=== PATIENT | male | born 1995 | race Caucasian/White ===

== ENCOUNTER → 2017-08-28 09:44 | Outpatient (REF) | payer BC, SELFPAY | LOC: LAB 09:44 | PROVIDERS: Visit Provider Podiatrist | DX: L60.0 Ingrowing nail (principal) | CPT/HCPCS: 87070; 87077; 87186; 87205 ==

== ENCOUNTER → 2018-07-15 10:19 | Outpatient (CLI) | payer BC, SELFPAY ==
--- NOTE | 2018-07-15 10:25 | XR_ITS ---
XR abdomen min 2V HISTORY: ITS.REASON: LOWER ABD PAIN ORDERING PHYSICIAN: [place] MD PATIENT AGE: 22 years COMPARISON: None FINDINGS: There is mild lumbar scoliosis convex left. Scattered air-fluid levels are present in large and small bowel. The bowel does not appear distended. No free air apparent. Prior cholecystectomy. No renal calculi evident. IMPRESSION: Scattered air-fluid levels within nondilated bowel which could be due to enteritis/colitis
== END ==
PROVIDERS: PCP Family Medicine; Visit Provider Family Medicine
DX: R10.30 Lower abdominal pain, unspecified (principal)
CPT/HCPCS: 74019

== ENCOUNTER 2022-07-31 08:37 | Emergency (ER) | payer OTHER, SELFPAY ==
[2022-07-31] VITALS (15 sets, daily range): BP systolic 122–177; BP diastolic 83–108; PULSE 65–79; RESP 14–18; TEMP 36.4; O2SAT 95–100; BMI 32.1
--- NOTE | 2022-07-31 08:47 | PC.NURSE ---
ROGERS MARQUEZ at
--- NOTE | 2022-07-31 08:49 | XR_ITS ---
FINAL REPORT CLINICAL HISTORY: fall, possible deformity FINDINGS: Right shoulder Three views were obtained. There is no acute fracture. There is anterior dislocation of the humerus at the glenohumeral joint. The joint spaces appear normal. No soft tissue abnormality is identified. IMPRESSION: Anterior dislocation of the humerus. Reviewed, Interpreted and Dictated by Thong Muir III, MD Transcribed by Marlin Howard Authenticated and [facility]
--- NOTE | 2022-07-31 08:51 | HMH.EDGENADL ---
Discharge Plan Disposition Patient Disposition: Home, Self-Care Condition: Good Prescriptions Prescriptions: No Action dexlansoprazole 60 mg capsule,biphase delayed releas 60 mg PO 30 Days Label Comments: Referrals Follow up/Referrals: Chris Figueroa JR, MD [Physician] - See instructions Juno Hernandez MD [Primary Care Provider] - See instructions Activity Restrictions/Add. Instructions Additional Instructions/Restrictions: Shoulder immobilizer. Avoid raising your right arm over your head until orthopedic follow-up. Follow-up with orthopedics, Dr. Figueroa, call for appointment. Ibuprofen and ice packs as needed for pain and swelling. Clinical Impressions Clinical Impression: Anterior dislocation of right shoulder Stand Alone Forms Stand Alone Forms: Work/School Release Instructions Patient Instructions: DI for Shoulder Dislocation, DI for Moderate Sedation, How to Use a Shoulder Immobilizer Discharge ED Provider: Tariq Hernadez General Adult HPI General Chief complaint: Extremity Injury, Upper Stated complaint: Fall@work 07/31 0835 RT shoulder pain Time Seen by Provider: 07/31/22 08:40 Mode of Arrival: Ambulatory Source of Information: Patient Limitations: No Limitations Description of Symptoms (Recalled from ER Triage Doc. by RN): Pt c/o R shoulder pain r/t fall. Pt slipped and fell down some steps. Possible deformity noted to R shoulder area. Radial and brachial pulses positive. History of Present Illness HPI narrative: Patient complains of a dislocated right shoulder. States that he slipped and fell down some steps landing on his back. He thinks he might of put out his right arm to break his fall and injured his right shoulder. 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 He says that his last dislocation was about 3 to 4 years ago. His orthopedist was at the [facility], he does not remember his name. Denies numbness or weakness of the extremity and denies any other injuries. Last oral intake was an hour and a half ago. Related Data Home Medications Medication Instructions Recorded Confirmed dexlansoprazole 60 mg 60 mg PO 30 days 08/28/17 09/21/19 capsule,biphase delayed release Allergies Allergy/AdvReac Type Severity Reaction Status Date / Time No Known Allergies Allergy Verified 09/21/19 11:06 [facility] Disclaimer: The information contained in this section may have been updated after the patient was seen, as this information can be updated by other users. Social History Smoking Status: Never smoker alcohol intake: current current occupational status: employed Travel in the last 8 weeks: Inside the [place] household members: family housing: house ROS Obtained: Yes Systems reviewed as appropriate & no additional complaints except as documented Constitutional Constitutional: Denies weakness Musculoskeletal Musculoskeletal: Reports as per HPI, Reports arthralgias (Right shoulder) and Denies numbness Neurologic Neurologic: Denies numbness and Denies weakness Physical Exam General General appearance: alert and in no apparent distress Chest Chest inspection: Present normal inspection and symmetric chest wall rise Respiratory Respiratory exam: Absent respiratory distress Cardiovascular Cardiovascular exam: Present regular rate Expanded Upper Extremity Exam Right: Arm exam: Present tenderness and deformity (Deformity consistent with anterior shoulder dislocation) Neurosensory exam: Normal radial nerve, ulnar nerve, median nerve and axillary nerve Vascular exam: Normal capillary refill and radial pulse Neurological Exam Neurological exam: Present alert and oriented X3 Psychiatric Psychiatric exam: Present normal affect and normal mood Skin Skin exam: Present warm and dry Medical Decision Making Edgardo Inquiry Pt receiving controlled subst
--- NOTE | 2022-07-31 08:52 | PC.NURSE ---
Spoke to Dejah in radiology regarding xray order; she is on way to get patient
--- NOTE | 2022-07-31 09:00 | PC.NURSE ---
rad at for portable xrays
--- NOTE | 2022-07-31 09:14 | PC.NURSE ---
ot on environmental monitoring specialist, O2 @ 2L per NC in place in preparation for procedure. 0914- propofol [address] martinez for sedation 0914-propofol [address] martinez 0917-propofol [address] martinez 0918- propofol [address] martinez 09- propofol [address] martinez 0920- shoulder relocated per dr. martinez 0923- sling on R shoulder, pt drowsy but easily alertable, able to answer questions 09- post reduction xray
--- NOTE | 2022-07-31 09:19 | PC.NURSE ---
ROGERS MARQUEZ at for procedure; FABIAN Qureshi and Melissa Mckinney RN at to assist
--- NOTE | 2022-07-31 09:24 | XR_ITS ---
FINAL REPORT CLINICAL HISTORY: post-reduction COMPARISON: 20 minutes prior FINDINGS: RIGHT SHOULDER A single view was obtained. There has been interval reduction of the previous dislocation. No fracture is identified. IMPRESSION: Successful reduction of dislocation. Reviewed, Interpreted and Dictated by Thong Muir III, MD Transcribed by Raulito Chiang Authenticated and [facility]
--- NOTE | 2022-07-31 09:24 | PC.NURSE ---
Ashley in radiology notified of post reduction xray order
--- NOTE | 2022-07-31 09:28 | PC.NURSE ---
family at bs
--- NOTE | 2022-07-31 09:40 | PC.NURSE ---
pt sitting up in bed, on phone, family at BS, alert/oriented x3. States no needs at this time will continue to monitor
--- NOTE | 2022-07-31 10:07 | PC.NURSE ---
came out and asked if pt could have something for pain, asked the dr if pt can have something for pain
--- NOTE | 2022-07-31 10:14 | PC.NURSE ---
pt on room air at this time, medicated per MAR
== END 2022-07-31 10:30 | disposition home or self-care (01) ==
PROVIDERS: Emergency Provider Emergency Medicine; PCP Family Medicine
DX: S43.004A Unspecified dislocation of right shoulder joint, initial encounter (principal); W01.0XXA Fall on same level from slipping, tripping and stumbling without subsequent striking against object, initial encounter; Y99.0 Civilian activity done for income or pay
CPT/HCPCS: 23650; 73030; 96361; 96374; 99284

== ENCOUNTER → 2022-08-15 07:26 | Outpatient (CLI) | payer OTHER, SELFPAY ==
--- NOTE | 2022-08-15 07:32 | MR_ITS ---
FINAL REPORT TECHNIQUE: Multiplanar and multisequence imaging of the shoulder was obtained without contrast. CLINICAL HISTORY: shoulder injury, dislocation on jul 31. COMPARISON: Plain films from July 31, 2022 FINDINGS: Bones/Joint: There is a Hill-Sachs fracture with surrounding bone contusion. The humeral head is appropriately located on this study. Remaining bone marrow signal intensity is normal. The AC joint is intact. Rotator Cuff: There may be a partial thickness articular sided anterior supraspinatus tendon tear. There is no convincing full-thickness tear of the supraspinatus or infraspinatus tendons. The subscapularis tendon is intact. There is no fatty atrophy of the rotator cuff musculature. Labrum: There is a SLAP tear of the superior labrum which extends posteriorly to at least the 8-9 o'clock location. There is a separate anterior-inferior labral tear. The biceps labral complex is intact. The glenohumeral ligaments are intact. Other: The more distal biceps tendon is located within the bicipital groove. There is a small joint effusion. Remaining soft tissues are within normal limits. IMPRESSION: Hill-Sachs fracture with humeral head bone contusion. Probable partial anterior supraspinatus tendon tear. Slap tear of the superior labrum extending posteriorly. Anterior-inferior labral tear. Reviewed, Interpreted and Dictated by Jessica Winters MD Transcribed by Raulito Chiang Authenticated and [facility]
== END ==
PROVIDERS: PCP Family Medicine; Visit Provider Orthopaedic Surgery
DX: M25.511 Pain in right shoulder (principal); S43.014A Anterior dislocation of right humerus, initial encounter
CPT/HCPCS: 73221

== ENCOUNTER → 2022-09-12 08:23 | Outpatient (CLI) | payer OTHER, SELFPAY ==
[2022-09-12 09:05] LABS: Basophils # 0.1 K/mm3 (0-0.2); Basophils % 1.2 % (0.1-2.0); Eosinophils # 0.2 K/mm3 (0.0-0.4); Eosinophils % 2.9 % (0.1-12.0); Hematocrit 47.7 % (42.0-52.0); Hemoglobin 15.8 g/dL (14.1-18.0); Lymphocytes # 2.2 K/mm3 (0.7-4.5); Lymphocytes % 28.6 % (10-50); Mean Corpuscular HGB Conc 33.1 g/dL (31.8-35.4); Mean Corpuscular Hemoglobin 28.3 pg (27.0-31.2); Mean Corpuscular Volume 85.7 fl (80-94); Mean Platelet Volume 8.9 fl (7.4-10.4); Monocytes # 0.5 K/mm3 (0.1-1.0); Neutrophils # 4.5 K/mm3 (1.8-7.8); Neutrophils % 60.3 % (37.0-80.0); Platelet Count 229 K/mm3 (142-424); Red Blood Count 5.57 M/mm3 (4.60-6.20); Red Cell Distribution Width 13.8 % (11.5-17.5); White Blood Count 7.5 K/mm3 (4.8-10.8)
[2022-09-12 09:27] LABS: Alanine Aminotransferase 59 U/L (12-78); Albumin Level 4.4 g/dl (3.5-5.0); Albumin/Globulin Ratio 1.7 (1.1-1.8); Alkaline Phosphatase 74 U/L (38-126); Anion Gap 12.4 mEq/L (5-15); Aspartate Amino Transferase 35 U/L (17-59); Bilirubin,Total 0.7 mg/dl (0.2-1.3); Blood Urea Nitrogen 14 mg/dl (9-20); Calcium 8.9 mg/dl (8.4-10.2); Carbon Dioxide 27 mmol/L (22.0-30.0); Chloride 102 mmol/L (98-107); Estimated Glomerular Filt Rate 100 ml/min (>60); GFR (African American) 122 ML/MIN (>60); Globulin 2.6 g/dL (1.3-3.2); Glucose 107 mg/dl (74-100); Potassium 4.4 mmoL/L (3.5-5.1); Sodium 137 mmol/L (136-145)
== END ==
PROVIDERS: PCP Family Medicine; Visit Provider Orthopaedic Surgery
DX: Z01.818 Encounter for other preprocedural examination (principal); M25.511 Pain in right shoulder
CPT/HCPCS: 36415; 80053; 85025

== ENCOUNTER 2022-09-17 11:57 | Day surgery (SDC) | payer OTHER, SELFPAY ==
[2022-09-17] VITALS (13 sets, daily range): BP systolic 139–172; BP diastolic 76–99; PULSE 68–117; RESP 18–24; TEMP 36.1–36.8; O2SAT 93–97; BMI 32.1
--- NOTE | 2022-09-17 13:43 | P.PN_ITS ---
[facility] Disclaimer: The information contained in this section may have been updated after the patient was seen, as this information can be updated by other users. Medical History History of gastroesophageal reflux (GERD) Surgical History History of cholecystectomy Status post labral repair of shoulder Family History Other Family history of cancer Family history of diabetes mellitus type II Thyroid cancer Social History Smoking Status: Never smoker alcohol intake: current substance use type: denies use current occupational status: employed Travel in the last 8 weeks: [place] the [place] household members: family housing: house marital status: education level: college service: No special ricci needs: No agree to transfusion: No do you feel safe at home: Yes victim of physical abuse: No victim of emotional abuse: No victim of sexual abuse: No would you like helpful sources: No [facility] Anesthesia Checklist Patient Identification Patient Identification: Arm Band Structural Data Admitted From: Home Planned Operative Procedure/s: Right Shoulder Arthroscopy, Rotator Cuff Repair Consent for Planned Operative Procedure(s) Verified: Yes Verified Documents: Surgical Consent and History and Physical NPO Status Verified Time NPO: 00:00 Additional verifications Anesthesia Reactions: No Hx Blood Transfusions: No Blood Transfusion Reaction: No Airway Assessment C-Spine Mobility Assessed: Yes TMJ Mobility Assessed: Yes Dentition: Good Dentition Neurological Assessment Level of Consciousness: Awake and Alert Anesthesia Plan Anesthesia Risk discussed: Yes Anesthesia Plan: Verified ASA Class: II Anesthesia Type: General w/block (Right Interscalene Nerve Block. Risks/benefits explained. Pt verbalized understanding)
--- NOTE | 2022-09-17 17:00 | P.PNANES_ITS ---
[facility] Anesthesia Record Part I Anesthesia Record I Intake, IV Amount: 2,000 Estimated blood loss (mL): 20 Urine output (mL): 0 Blood Products used (#): none Blood Pressure: 143/79 SaO2: 93 Pulse Rate: 117 Respiratory Rate: 24 Temperature: 97 F Patient is:: Drowsy and Stable Stable to PACU at:: 16:45
--- NOTE | 2022-09-17 17:02 | EXP.OP.NOTE ---
Date of procedure: 09/17/22 Pre-op Diagnosis:: Right shoulder dislocation with anterior labral tear SLAP tear partial-thickness rotator cuff tear Post-op Diagnosis:: Same Procedure performed:: 1. Right shoulder arthroscopy with SLAP repair 2. Right shoulder arthroscopy with anterior labral pair Bankart repair 3. Right shoulder arthroscopy with debridement partial-thickness rotator cuff tear Surgeon:: Edwardo Montano DO Mobile Paramedical Examiner(s):: Royer TRAN Anesthesia: GETA and regional Estimated blood loss (mL): 0 Operative findings:: Anterior labral tear SLAP tear partial-thickness rotator cuff tear none engaging Hill-Sachs lesion Operative note:: Patient identified preoperatively right shoulder marked with yes my initials. Underwent a block with anesthesia. Then transferred to operative suite. Placed upon the bed. General anesthesia ministered airway secured. Then placed in a lateral position with a beanbag with all bony prominences well-padded. Right arm was placed in line with the arm quinteros 15 pounds of traction. Right shoulder was then prepped and draped normal sterile fashion. Once prepped and draped final operative timeout performed to identify proper patient procedure and extremity. Everyone involved the case agreed. No counter indications beginning. Did receive preoperative antibiotics. Marking pen was used to carissa bony landmarks of the shoulder and standard portal sites. Skin knife was used to incise posterior viewing portal blunt with trocar was placed in the glenohumeral joint. Within the glenohumeral joint I swept directly anteriorly just above the subscapularis tendon and made an anterior working portal unchanged with a purple cannula. Within the glenohumeral joint there was evident tearing of the anterior labrum superior labrum. Arm was taken through motion and Hill-Sachs lesion was not engaging therefore not requiring remplissage procedure. Therefore attention was brought to repair of the anterior labrum superior labrum. There was significant tearing of the labrum and fraying of the tissue anteriorly. However there was adequate tissue for repair. So suture lasso was used to pass a passing suture through the labrum and initial anchor was placed at 2:00 to secure labrum to the glenoid. Then I worked inferiorly and superiorly from this anchor placing push lock anchors to repair the labrum and the SLAP tear. Probing this showed no displacement of the posterior labrum and anterior labrum. Stable repair. Undersurface of the rotator cuff debrided and small partial-thickness tearing present. Biceps anchor was restored. Once labral pair complete cameras removed the joint was drained skin was closed nylon stitch sterile dressing placed patient placed in a pillow in a sling and abduction pillow taken recovery in stable condition. Condition: stable Disposition: PACU Complications:: None apparent
--- NOTE | 2022-09-18 09:09 | EXP.ANES.II ---
[facility] Anesthesia Record Part II Anesthesia Record Part II Discharge Time: 17:15 Destination: Surgical Day Care (OP Surgery) PACU nurse assessment reviewed?: Yes Patient Condition:: Good Anesthesia Complications:: None Swallowing reflex intact?: Yes Cyanosis?: No Blood Pressure: 149/76 Pulse Rate: 92 Temperature: 97.9 F Mental Status: Alert & Oriented Pain level:: 0 Nausea and/or vomitting:: None Intake, IV Amount: 0
[2022-09-18 09:10] VITALS: BP 149/76; PULSE 92; TEMP 36.6
== END 2022-09-17 18:50 | disposition home or self-care (01) ==
PROVIDERS: PCP Family Medicine; Visit Provider Orthopaedic Surgery
PROC: (CPT 29805; principal; 2022-09-17 13:30)
DX: S43.431A Superior glenoid labrum lesion of right shoulder, initial encounter (principal); S46.011A Strain of muscle(s) and tendon(s) of the rotator cuff of right shoulder, initial encounter; S43.421A Sprain of right rotator cuff capsule, initial encounter; S43.491A Other sprain of right shoulder joint, initial encounter; M21.821 Other specified acquired deformities of right upper arm; S43.014A Anterior dislocation of right humerus, initial encounter; W10.8XXA Fall (on) (from) other stairs and steps, initial encounter; Y93.89 Activity, other specified; Y92.018 Other place in single-family (private) house as the place of occurrence of the external cause; Y99.0 Civilian activity done for income or pay
CPT/HCPCS: 29806; 29827; 96374; C1713; J2405

== ENCOUNTER → 2023-01-19 15:09 | Outpatient (CLI) | payer BC, SELFPAY ==
[2023-01-19 15:23] LABS: Adenovirus F 40/41, stool Not Detected (NotDetected); Astrovirus Not Detected (NotDetected); Campylobacter Not Detected (NotDetected); Clostridium Difficile A/B, PCR Not Detected (NotDetected); Cryptosporidium Not Detected (NotDetected); Cyclospora Cayetanesis Not Detected (NotDetected); Entamoeba histolytica Not Detected (NotDetected); Enteroaggregative E coli Not Detected (NotDetected); Enteropathogenic E coli Not Detected (NotDetected); Enterotoxigenic E coli Not Detected (NotDetected); Giardia lamblia Not Detected (NotDetected); Norovirus Not Detected (NotDetected); Plesimonas Shigalloides, PCR Not Detected (NotDetected); Rotavirus A Not Detected (NotDetected); Salmonella, PCR Not Detected (NotDetected); Sapovirus Not Detected (NotDetected); Shiga-like toxin E coli Not Detected (NotDetected); Shigella Enterovasive E coli Not Detected (NotDetected); Vibrio Cholerae Not Detected (NotDetected); Vibrio, PCR Not Detected (NotDetected); Yersinia Entercolitica, PCR Not Detected (NotDetected)
== END ==
PROVIDERS: PCP Physician Assistant; Visit Provider Physician Assistant
DX: K58.0 Irritable bowel syndrome with diarrhea (principal)
CPT/HCPCS: 87507

== ENCOUNTER 2023-02-12 08:00 | Outpatient (RCR) | payer OTHER, SELFPAY ==
--- NOTE | 2022-11-23 11:22 | HMH.OTOPEV ---
OT Inpatient Evaluation Rehab OT Outpatient Eval Start: 11/23/22 10:49 Freq: Status: Active Protocol: Document 11/23/22 10:49 RMARSHALL (Rec: 11/23/22 11:22 [id number] E-signed By Roger Rodriguez, OT Outpatient Therapy Subjective History Subjective History Pt is a 27 year old male who reports to therapy for initial evaluation to right shoulder. Pt initially injured shoulder on 07/31/22 when he fell down a flight of steps and dislocated right shoulder. From dislocation, pt required surgery on 09/17/22 for the following procedures to right shoulder: 1. Right shoulder arthroscopy with SLAP repair 2. Right shoulder arthroscopy with anterior labral pair Bankart repair 3. Right shoulder arthroscopy with debridement partial- thickness rotator cuff tear Pt is currently 9 weeks out from surgery at this time. He was able to stop wearing sling as of last week. Pt demonstrates with decreased AROM and strength at right shoulder; pt is right hand dominant. Pt will continue to be seen twice a week Chief Complaint Pain,Stiff,Weakness Symptom Type Ache,Throb,Dull Symptoms Relieved By Nothing Symptoms Aggravated By Physical Activity,Lifting Prior Functional Limitations None Current Functional Limitations Reaching,Lifting,Housework, Sleeping,Recreation Activity Symptom Description Intermittent,Activity Dependent Level of pain today (0-10) 0 Pain scale - at its best (0-10) 0 Pain scale - at its worst (0-10) 3 Shoulder/Elbow Eval Shoulder Objective Measurements Shoulder ROM Right Shoulder Abduction Active Range of 90 degrees Motion (degrees) Shoulder Flexion Active Range of Motion 108 degrees (degrees) Query Text: Shoulder External Rotation Active Range 35 degrees of Motion (degrees) Shoulder Internal Rotation Active Range 45 degrees of Motion (degrees) pain with active ROM shoulde
--- NOTE | 2022-12-20 08:52 | HMH.RHREAS ---
Rehab Reassessment Rehab OP Re-assessment Start: 11/23/22 09:48 Freq: Status: Active Protocol: Document 12/20/22 08:00 ARIS (Rec: 12/20/22 08:51 ARIS [id number]) E-signed By Roger Rodriguez OT Rehab Re-assessment Subjective Subjective I feel like it's doing pretty well overall. Objective Objective Notes Pt continues to be seen twice a week in order to address right shoulder deficits. Each session, pt engages in Right shoulder AROM, AAROM, and light strengthening exercises and activities. PROM manual stretching to right shoulder is completed each session as well in all planes (flexion, abduction, ER, and IR). Modalities are provided in order to decrease pain/ inflammation. Assessment Progress Assessment Progressing as Expected Assessment Notes Pt very consistent about attending therapy sessions. Pt is currently 13 weeks s/p; he started therapy at 8 weeks out. Pt demonstrates a great improvement with AROM at right shoulder. He reports his worst pain at a 2/10. Usually this pain is when he sleeps on the shoulder at night. Therapist plans to advance strengthening upon surgeons request. Current AROM Flex: 150 degrees Abd: 125 degrees ER: 60 degrees IR; 62 degrees Patient goals met [address]-5 LT Goals Not Met See below Revised Goals LT and 4 AROM Goals: Flex: 160 degrees Abd: 140 degrees ER: 75 degrees IR: 70 degres Plan Plan Continue with OT plan of care at this time Frequency of Therapy 2x's a week Duration of therapy 6 more weeks Time and Billing Re-Eval Time
--- NOTE | 2023-01-15 08:43 | HMH.RHREAS ---
Rehab Reassessment Rehab OP Re-assessment Start: 11/23/22 09:48 Freq: Status: Active Protocol: Document 01/15/23 08:02 ARIS (Rec: 01/15/23 08:43 ARIS [id number]) E-signed By Roger Rodriguez OT Rehab Re-assessment Subjective Subjective Still a little tender at times, but better. Objective Objective Notes Pt continues to be seen twice a week in order to address right shoulder deficits. Each session, pt engages in Right shoulder AROM, AAROM, and light strengthening exercises and activities. PROM manual stretching to right shoulder is completed each session as well in all planes (flexion, abduction, ER, and IR). Modalities are provided in order to decrease pain/ inflammation. Assessment Progress Assessment Progressing as Expected Assessment Notes Pt very consistent about attending therapy sessions. Pt is currently 17 weeks s/p; he started therapy at 8 weeks out. Pt demonstrates a great improvement with AROM at right shoulder. Pt did strain his upper trap during exercises ~ 2 weeks ago, but it has been improving. Pt still rates his worst pain at 2/10 while sleeping on right side or working above head for an extended amount of time. Current AROM Flex: 165 degrees Abd: 155 degrees ER: 78 degrees IR: 70 degrees Patient goals met [address]-5 LT and 3 AROM Goals: Flex: 160 degrees Abd: 140 degrees ER: 75 degrees IR: 70 degres Goals Not Met See below Revised Goals LT, 4, and 5 AROM Goals: Flex: 170 degrees Abd: 160 degrees
--- NOTE | 2023-02-12 08:55 | HMH.RHREAS ---
Rehab Reassessment Rehab OP Re-assessment Start: 11/23/22 09:48 Freq: Status: Active Protocol: Document 02/12/23 08:01 ARIS (Rec: 02/12/23 08:55 ARIS [id number]) E-signed By Roger Rodriguez OT Rehab Re-assessment Subjective Subjective It's doing okay. Objective Objective Notes Pt continues to be seen twice a week in order to address right shoulder deficits. Each session, pt engages in Right shoulder AROM, AAROM, and light strengthening exercises and activities. PROM manual stretching to right shoulder is completed each session as well in all planes (flexion, abduction, ER, and IR). Modalities are provided in order to decrease pain/ inflammation. Assessment Progress Assessment Progressing as Expected Assessment Notes Pt very consistent about attending therapy sessions. Pt is currently 21 weeks s/p; he started therapy at 8 weeks out. Pt demonstrates a great improvement with AROM at right shoulder. Pt returns to surgeon today for follow up appointment. Pt continues to rate his worst pain at 2/10. He also explains his pain is very rare and does not occur often. Current AROM Flex: 170 degrees Abd: 168 degrees ER: 85 degrees IR: [address] goals [address]-5 LT and 3 AROM Goals: Flex: 160 degrees Abd: 140 degrees ER: 75 degrees IR: 70 degres AROM Goals: Flex: 170 degrees Abd: 160 degrees ER: 80 degrees IR: 70 degres Goals Not Met See below Revised Goals LT, 4, and 5 Plan Plan At this time, pt's AR
== END 2023-02-12 08:05 | disposition home or self-care (01) ==
LOC: OT 08:00
PROVIDERS: Visit Provider Orthopaedic Surgery
DX: S43.431A Superior glenoid labrum lesion of right shoulder, initial encounter (principal)
CPT/HCPCS: 97010; 97014; 97110; 97140; 97164; 97166; 97530; G0283

== ENCOUNTER 2023-05-29 07:35 | Day surgery (SDC) | payer BC, SELFPAY ==
[2023-04-30 09:36] VITALS: BMI 32.1
[2023-05-29] VITALS (8 sets, daily range): BP systolic 98–144; BP diastolic 54–94; PULSE 68–95; RESP 14–18; TEMP 36.2–36.8; O2SAT 92–98
--- NOTE | 2023-05-29 08:00 | P.PNANES_ITS ---
[facility] Disclaimer: The information contained in this section may have been updated after the patient was seen, as this information can be updated by other users. Medical History History of gastroesophageal reflux (GERD) Surgical History History of cholecystectomy Status post labral repair of shoulder Family History Other Family history of cancer Family history of diabetes mellitus type II Thyroid cancer Social History Smoking Status: Never smoker alcohol intake: current substance use type: denies use current occupational status: employed Travel in the last 8 weeks: [place] the [place] household members: family housing: house marital status: education level: college service: No special ricci needs: No agree to transfusion: No do you feel safe at home: Yes victim of physical abuse: No victim of emotional abuse: No victim of sexual abuse: No would you like helpful sources: No [facility] Anesthesia Checklist Patient Identification Patient Identification: Arm Band and Verbal (Name & ) Structural Data Admitted From: Home Planned Operative Procedure/s: Colonoscopy Consent for Planned Operative Procedure(s) Verified: Yes NPO Status Verified Time NPO: 00:00 Additional verifications Anesthesia Reactions: No Hx Blood Transfusions: No Blood Transfusion Reaction: No Airway Assessment Mallampati Score:: Class II C-Spine Mobility Assessed: Yes TMJ Mobility Assessed: Yes Dentition: Good Dentition Neurological Assessment Level of Consciousness: Awake Hx Seizures: No Numbness or tingling in extremities: No Anesthesia Plan Anesthesia Risk discussed: Yes Anesthesia Plan: Verified ASA Class: I Anesthesia Type: MAC
--- NOTE | 2023-05-29 09:12 | P.PCN_ITS ---
Procedure: Date: 05/29/23 Patient Date of :: 1995 Procedure Performed:: Colonoscopy Indications:: The patient is a 27 year old who presents for colonoscopy evaluation of chornic abdominal pain and diarrhea. The patient reports negative testing for celiac disease in the past. He has recent unremarkable stool studies for infectious pathogens. Performing Provider:: Prasad Frias MD Referring Provider:: Niki Soni APRN (Gastroenterology) Sedation:: See RN records Procedure:: After placing the patient in the left lateral decubitus position, the colonoscopy was gently inserted into the rectum and under direct visualization advanced to the cecum which was identified by transillumination in the right lower quadrant, identification of the ileocecal valve, appendiceal orifice, and cecal strap. Color, texture, mucosa, and anatomy of the colon were carefully examined with the scope. Findings:: Anal canal: normal Rectum: Internal hemorrhoids Sigmoid colon: normal without polyps or inflammatory changes Descending colon: normal without polyps or inflammatory changes Splenic flexure: normal Transverse colon: normal without polyps or inflammatory changes Hepatic flexure: normal Ascending colon: normal without polyps or inflammatory changes Cecum: normal Terminal ileum: Normal, Biopsies obtained Impression: Normal appearing terminal ileum Normal appearing colon Random colon biopsies obtained Recommendations:: Await pathology results Follow up in GI office for management of suspected IBS-D Complications:: none Estimated blood obtained (mL): 0 Colonoscopy Component Colonoscopy Component Was a colonoscopy performed during today's procedure?: Yes Recommended follow up colonoscopy of at least 10 years?: No If no, follow up colonoscopy recommended in ___ years?: Age 45, sooner if indicated Reason for not recommending >/= 10 yr follow-up interval?: Diagnostic col onoscopy
--- NOTE | 2023-05-29 09:39 | SUR.PHASEII ---
0910 - Pt to post op w/ oral airway in place. Sedation score - 6, anesthesia aware. VSS. Anesthesia aware. 0934 - Oral airway out, pt awake and appropriate. Mother at bedside.
== END 2023-05-29 10:00 | disposition home or self-care (01) ==
PROVIDERS: PCP Physician Assistant; Visit Provider Internal Medicine
PROC: 0DJD8ZZ Inspection of Lower Intestinal Tract, Via Natural or Artificial Opening Endoscopic (ICD-10-PCS; CPT 45378; principal; 2023-05-29 09:00)
DX: R10.9 Unspecified abdominal pain (principal); R19.7 Diarrhea, unspecified; K64.8 Other hemorrhoids
CPT/HCPCS: 45378

== ENCOUNTER 2024-08-16 01:15 | Emergency (ER) | payer BC, SELFPAY ==
[2024-08-16 01:15] VITALS: BP 142/90; PULSE 68; RESP 14; TEMP 36.7; O2SAT 95; BMI 32.7
--- NOTE | 2024-08-16 01:17 | ECG_ITS ---
APPROVED REPORT Exam: Resting ECG HR:82 bpm ECG Measurements Heart Rate 82 AXES WA 164 P 33 QRSd 102 QRS 12 QT 340 T 30 QTc 379 Conclusion SINUS RHYTHM NORMAL ECG Electronically signed by : TIMOTHY RICHARDS, 08/16/2024 07:09:24
[2024-08-16 01:20] VITALS: BP 147/84; BP 148/89; BP 151/87; PULSE 90; PULSE 91; PULSE 93
--- NOTE | 2024-08-16 01:20 | XR_ITS ---
PROCEDURE INFORMATION: Exam: XR Chest Exam date and time: 08/16/2024 1:32 AM Age: 28 years old Clinical indication: Other: Loc; Additional info: Syncope TECHNIQUE: Imaging protocol: Radiologic exam of the chest. Views: 1 view. COMPARISON: CR XR CHEST PORTABLE 08/16/2024 1:32 AM FINDINGS: Lungs: Unremarkable. No consolidation. There is no focal mass. Pleural spaces: Unremarkable. No pleural effusion. No pneumothorax. Heart/Mediastinum: Unremarkable. No cardiomegaly. Bones/joints: Unremarkable. There is no acute fracture present. IMPRESSION: No evidence for acute cardiac or pulmonary process.
--- NOTE | 2024-08-16 01:21 | CT_ITS ---
PROCEDURE INFORMATION: Exam: CT Head Without Contrast Exam date and time: 08/16/2024 1:40 AM Age: 28 years old Clinical indication: Stroke-like symptoms; Syncope/collapse TECHNIQUE: Imaging protocol: Computed tomography of the head without contrast. Radiation optimization: All CT scans at this facility use at least one of these dose optimization techniques: automated exposure control; mA and/or kV adjustment per patient size (includes targeted exams where dose is matched to clinical indication); or iterative reconstruction. Other technique: STROKE PROTOCOL was implemented. COMPARISON: No relevant prior studies available. FINDINGS: Brain: Normal. No hemorrhage. Age appropriate white matter. No mass effect. No focal mass. The flores-white matter junction is intact. Cerebral ventricles: No ventriculomegaly. Paranasal sinuses: Visualized sinuses are unremarkable. No fluid levels. Mastoid air cells: Visualized mastoid air cells are well aerated. Bones: Unremarkable. No acute fracture. Soft tissues: Unremarkable. IMPRESSION: Unremarkable noncontrast examination of brain. There is no hemorrhage or mass. There is no large infarction seen. ASSESSMENT: ASPECTS ([place] Stroke Program Early CT Score) is 10.
--- NOTE | 2024-08-16 01:22 | CT_ITS ---
PROCEDURE INFORMATION: Exam: CTA Neck With Contrast Exam date and time: 08/16/2024 1:43 AM Age: 28 years old Clinical indication: Stroke-like symptoms; Syncope/collapse; Additional info: Syncope dizziness TECHNIQUE: Imaging protocol: Computed tomographic angiography of the neck with contrast. Exam focused on the cervical segments of the vasculature. 3D rendering (Not supervised by radiologist): MIP and/or 3D reconstructed images were created by the technologist. Radiation optimization: All CT scans at this facility use at least one of these dose optimization techniques: automated exposure control; mA and/or kV adjustment per patient size (includes targeted exams where dose is matched to clinical indication); or iterative reconstruction. Contrast material: ISOVUE; Contrast volume: 70 ml; Contrast route: INTRAVENOUS (IV); COMPARISON: CT ANGIO HEAD 08/16/2024 1:43 AM FINDINGS: Right common carotid artery: No stenosis. No dissection or occlusion. Right internal carotid artery: No significant stenosis. No dissection or occlusion. Right external carotid artery: No occlusion or stenosis of the origin. Left common carotid artery: No stenosis. No dissection or occlusion. Left internal carotid artery: No significant stenosis. No dissection or occlusion. Left external carotid artery: No occlusion or stenosis of the origin. Right vertebral artery: No stenosis. No dissection or occlusion. Left vertebral artery: No stenosis. No dissection or occlusion. Soft tissues: Normal. No significant soft tissue swelling. Bones/joints: No acute fracture. IMPRESSION: Unremarkable examination with no significant stenosis, dissection, or occlusion. REFERENCES: NASCET CRITERIA. The degree of stenosis in the cervical segment of the internal carotid artery is based on NASCET criteria. Normal is no stenosis. Mild is less than 50% stenosis. Moderate is 50-69% stenosis. Severe is 70% to 99% stenosis. Total occlusion is no detectable patent lumen.
--- NOTE | 2024-08-16 01:22 | CT_ITS ---
PROCEDURE INFORMATION: Exam: CTA Head With Contrast, Arteriography Exam date and time: 08/16/2024 1:43 AM Age: 28 years old Clinical indication: Stroke-like symptoms; Syncope/collapse; Additional info: Syncope dizziness TECHNIQUE: Imaging protocol: Computed tomographic angiography of the head with contrast. Exam focused on the arteries. 3D rendering (Not supervised by radiologist): MIP and/or 3D reconstructed images were created by the technologist. Radiation optimization: All CT scans at this facility use at least one of these dose optimization techniques: automated exposure control; mA and/or kV adjustment per patient size (includes targeted exams where dose is matched to clinical indication); or iterative reconstruction. Contrast material: ISOVUE; Contrast volume: 70 ml; Contrast route: INTRAVENOUS (IV); COMPARISON: CT ANGIO HEAD 08/16/2024 1:43 AM FINDINGS: ANTERIOR CIRCULATION: Right internal carotid artery: Intracranial segment is patent with no significant stenosis or occlusion. No aneurysm. Right middle cerebral artery: No occlusion or significant stenosis. No aneurysm. Right anterior cerebral artery: No occlusion or significant stenosis. No aneurysm. Left internal carotid artery: Intracranial segment is patent with no significant stenosis. No aneurysm. Left middle cerebral artery: No occlusion or significant stenosis. No aneurysm. Left anterior cerebral artery: No occlusion or significant stenosis. No aneurysm. POSTERIOR CIRCULATION: Right vertebral artery: No occlusion or significant stenosis. No aneurysm. Left vertebral artery: No occlusion or significant stenosis. No aneurysm. Basilar artery: No occlusion or significant stenosis. No aneurysm. Right posterior cerebral artery: No occlusion or significant stenosis. No aneurysm. Left posterior cerebral artery: No occlusion or significant stenosis. No aneurysm. Veins: There is no venous thrombosis. Brain: Normal. No hemorrhage. Unremarkable white matter. No mass effect. Cerebral ventricles: Normal. No ventriculomegaly. Bones/joints: Unremarkable. No acute fracture. Soft tissues: Unremarkable. IMPRESSION: No evidence for a embolism, dissection, aneurysm, or venous thrombosis. There is no significant stenosis.
--- NOTE | 2024-08-16 01:25 | HMH.EDGENADL ---
Discharge Plan Disposition Patient Disposition: Home, Self-Care Condition: Good Prescriptions Prescriptions: New ondansetron 4 mg tablet,disintegrating 4 mg PO Q6H PRN (Reason: nausea and vomiting) Qty: 7 0RF No Action pantoprazole 40 mg tablet,delayed release (DR/EC) 40 mg PO DAILY Qty: 90 3RF dicyclomine 20 mg tablet 20 mg PO QID PRN (Reason: abdominal pain) Qty: 60 5RF amitriptyline 10 mg tablet 20 mg PO HS Qty: 180 3RF Referrals Follow up/Referrals: Provider,Referral, MD [Referring] - See instructions Activity Restrictions/Add. Instructions Additional Instructions/Restrictions: You were evaluated in the ER and are appropriate for discharge at this time. Drink plenty of fluids. Take the prescribed ondansetron if needed for nausea or vomiting. Wear a mask, wash your hands frequently, be diligent about avoiding the spread of your influenza. Make an appointment with your primary care doctor for reevaluation in a few days. Return to the ER with new, worsening, or otherwise concerning symptoms. Clinical Impressions Clinical Impression: Influenza A, Syncope Print Language Print Language: Sinhala Discharge ED Provider: Pb Pacheco General Adult HPI General Chief complaint: Syncope Stated complaint: passed out Time Seen by Provider: 08/16/24 01:19 History of Present Illness HPI narrative: 28-year-old male with history of GERD on PPI presents to the ER with syncopal event. Patient was upstairs with his who is actively in labor. He reportedly went from laying down, asleep to suddenly standing up and walking toward the bathroom. While walking, he syncopized. He was unconscious for approximately 8 minutes prior to arrival in the ER. No seizure-like activity, no history of seizures. Patient awoke with ammonia salts and reports no pain but states the room feels like it is spinning still. He reports no numbness, tingling, or weakness. Report from nursing staff upstairs was that patient was helped to the floor, he did not fall or strike his head. According to his family at bedside, patient has recently had mild upper respiratory symptoms but he is not complaining of chest pain, shortness of breath, nausea, vomiting, diarrhea, or any other associated symptoms. He reportedly has been eating and drinking, most recent meal was approximately 5 hours ago. No history of similar event. Related Data Previous Rx's ?Medication ?Instructions ?Recorded amitriptyline 10 mg tablet 20 mg (2 x 10 mg) PO HS ibs #180 06/18/24 tabs dicyclomine 20 mg tablet 20 mg PO QID PRN abdominal pain 06/18/24 #60 tabs pantoprazole 40 mg tablet,delayed 40 mg PO DAILY Reflux/Acid reflux 06/18/24 release #90 tabs ondansetron 4 mg disintegrating 4 mg PO Q6H PRN nausea and 08/16/24 tablet vomiting #7 tabs Allergies Allergy/AdvReac Type Severity Reaction Status Date / Time No Known Allergies Allergy Verified 08/16/24 03:35 [facility] Disclaimer: The information contained in this section may have been updated after the patient was seen, as this information can be updated by other users. Medical History History of gastroesophageal reflux (GERD) Surgical History History of cholecystectomy Status post labral repair of shoulder Family History Other Family history of cancer Family history of diabetes mellitus type II Thyroid cancer Social History (Updated 06/18/24 @ 14:09 by CLOTILDE Mortensen) Smoking Status: Never smoker alcohol intake: current alcohol intake frequency: a few times a month substance use type: denies use current occupational status: employed Travel in the last 8 weeks: None household members: family housing: house marital status: education level: college service: No special ricci needs: No agree to transfusion: No do you feel safe at home: Yes victim of physical abuse: No victim of emotional abuse: No victim of sexual abuse: No would you like helpful sources: No Have you lived/traveled outside [place] in past 30 days?: No Contact w/someone who lives/traveled outside US past 30 days?: No Exposure to someone with infectious disease in past 14 days?: No Do you have a fever (greater than 100.4 F or 38 C)?: No Have you tested positive for COVID-19: No Exposed to someone with COVID-19 in past 14 days?: No Do you have a sore throat?: No Do you have a cough?: No Do you have any weakness?: No Do you have any diarrhea?: No Are you experiencing any unusual bleeding?: No Do you have any muscle aches/pain?: No Do you have any abdominal pain?: No Are you experiencing loss of taste or smell?: No Other Medical History Have you received the Flu Vaccine for this season: No Have you received the Pneumonia Vaccine: Yes ROS Obtained: Yes Systems reviewed as appropriate & no additional complaints except as documented Per HPI Physical Exam General General appearance: in no apparent distress Comment: When patient initially rolled into the room on the stretcher from upstairs, he was not alert but immediately became alert after ammonia salts were waived under his nose Head Head exam: atraumatic and normocephalic Eye Eye exam: Present PERRL (2 mm, reactive) and EOMI; Absent scleral icterus, conjunctival injection or nystagmus ENT ENT exam: Present mucous membranes moist Neck Neck exam: Present normal inspection and full ROM Chest Chest inspection: Present symmetric chest wall rise; Absent tenderness Respiratory Respiratory exam: Present normal lung sounds bilaterally; Absent respiratory distress, wheezes or stridor Cardiovascular Cardiovascular exam: Present regular rate and normal rhythm Abdominal Exam Abdominal exam: Present soft; Absent distention or tenderness Extremities Exam Extremities exam: Present full ROM Neurological Exam Neurological exam: Present oriented X3 and other (Immediately after ammonia salts, GCS was 15.); Absent motor sensory deficit Psychiatric Psychiatric exam: Present normal affect and normal mood Skin Skin exam: Present warm and dry Medical Decision Making Medical Records Medical records reviewed: Yes I reviewed the patient's medical records. Screening: Per USPSTF and CDC recommendations, given the prevalence of disease in our region, it is our hospital?s policy to screen for HIV and viral Hepatitis for all patients aged 18 and over and those with ongoing risk factors. MR Comment: Review of most recent records in our system include GI records were patient has been seen for IBS-like symptoms as well as GERD. At most recent visit in May 2024, patient was diagnosed with IBS with constipation and diarrhea, GERD without esophagitis, functional abdominal pain, fecal urgency, started on pantoprazole and refilled amitriptyline. Edgardo Inquiry Pt receiving controlled substance: No Vital Signs: 08/16/24 01:15 08/16/24 01:20 08/16/24 02:14 Temperature 98.1 F Temperature Source Oral Pulse Rate 83 Pulse Rate [Orthostatic Lying] 90 Pulse Rate [Orthostatic Sitting] 93 H Pulse Rate [Orthostatic Standing] 91 H Pulse Rate [Radial] 68 Respiratory Rate 14 16 Blood Pressure 157/91 H Blood Pressure [Left Arm] 142/90 H Blood Pressure [Orthostatic Lying Left Arm] 151/87 H Blood Pressure [Orthostatic Sitting] 147/84 H Blood Pressure [Orthostatic Standing] 148/89 H Blood Pressure Mean [Left Arm] 107 Blood Pressure Source [Left Arm] Automatic Cuff Blood Pressure Position Supine Blood Pressure Position [Left Arm] Supine 02 Sat by Pulse Oximetry 95 98 Oxygen Delivery Method Nasal Cannula Room Air Oxygen Flow Rate (LPM) 2 08/16/24 03:33 Temperature Temperature Source Pulse Rate 83 Pulse Rate [Orthostatic Lying] Pulse Rate [Orthostatic Sitting] Pulse Rate [Orthostatic Standing] Pulse Rate [Radial] Respiratory Rate Blood Pressure 150/91 H Blood Pressure [Left Arm] Blood Pressure [Orthostatic Lying Left Arm] Blood Pressure [Orthostatic Sitting] Blood Pressure [Orthostatic Standing] Blood Pressure Mean [Left Arm] Blood Pressure Source [Left Arm] Blood Pressure Position Blood Pressure Position [Left Arm] 02 Sat by Pulse Oximetry 97 Oxygen Delivery Method Room Air Oxygen Flow Rate (LPM) Lab Data Lab Results 08/16/24 01:00: HCV Ab RED w/Rflx PCR Qn Negative, HIV Ag/Ab Combo Qual Negative 08/16/24 01:20: WBC 5.2, RBC 5.03, Hgb 14.5, Hct 41.5 L, MCV 82.5, MCH 28.8, MCHC 34.9, RDW 12.6, Plt Count 191, MPV 10.7 H, Neut % (Auto) 46.4, Lymph % (Auto) 34.9, [place] % (Auto) 13.7 H, Eos % (Auto) 4.0, Baso % (Auto) 0.8, Neut # (Auto) 2.4, Lymph # (Auto) 1.8, [place] # (Auto) 0.7, Eos # (Auto) 0.2, Baso # (Auto) 0.0, Sodium 138, Potassium 3.4 L, Chloride 98, Carbon Dioxide 26, Anion Gap 17.4 H, BUN 14, Creatinine 1.00, Estimated Creat Clear 177, Estimated GFR 88, Est GFR ( Amer) 106, Glucose 129 H, Calcium 9.3, Total Bilirubin 0.5, AST 29, ALT 36, Alkaline Phosphatase 64, Troponin I < 0.01, Total Protein 7.2, Albumin 4.6, Globulin 2.6, Albumin/Globulin Ratio 1.8 08/16/24 03:35: SARS-CoV-2 (PCR) Not detected, Influenza A Untype (PCR) Detected A, Influenza Type B (PCR) Not detected 08/16/24 01:20 08/16/24 01:20 Orders (Tests/Meds): ED MEDICATIONS Discontinued Medications Generic Name Dose Route Start Last Admin Trade Name Freq PRN Reason Stop Dose Admin Acetaminophen 1,000 mg 08/16/24 02:02 08/16/24 02:06 Acetaminophen 500mg Tab PO 08/16/24 02:03 1,000 mg ONCE ONE Administration Hydroxyzine Pamoate 50 mg 08/16/24 03:14 08/16/24 03:32 Hydroxyzine Pamoate 25mg Capsule PO 08/16/24 03:15 50 mg ONCE ONE Administration Lactated Ringer's 1,000 mls @ 999 mls/hr 08/16/24 01:20 08/16/24 01:35 Lactated Ringer's 1000 Ml Bag IV 08/16/24 02:20 999 mls/hr .Q1H1M ONE Administration Iopamidol 70 ml 08/16/24 01:51 08/16/24 01:52 Iopamidol-370 (76%);100ml Bottle IV 08/16/24 01:52 70 ml ONCE ONE Administration Ketorolac Tromethamine 30 mg 08/16/24 02:01 08/16/24 02:06 Ketorolac 30mg/Ml Vial IV 08/16/24 02:02 30 mg ONCE ONE Administration Ondansetron HCl 4 mg 08/16/24 02:01 08/16/24 02:06 Ondansetron 4mg/2ml Vial IV 08/16/24 02:02 4 mg ONCE ONE Administration Sodium Chloride 50 ml 08/16/24 01:51 08/16/24 01:52 0.9 % Sodium Chloride 50 Ml Vial IV 08/16/24 01:52 50 ml ONCE ONE Administration Sodium Chloride 10 ml 08/16/24 01:51 08/16/24 01:52 Sodium Chloride 0.9% 10ml Syr (Rad Only) IV 08/16/24 01:52 10 ml ONCE ONE Administration ORDERS Category Date Time Status CT angio head Stat Cat Scan 08/16/24 01:[address] angio neck Stat Cat Scan 08/16/24 01:[address] head/brain wo con Stat Cat Scan 08/16/24 01:21 Completed CXR --portable [XR chest portable] Stat Exams 08/16/24 01:20 Completed CBC w/Auto Diff [Complete Blood Count Auto Diff] Stat Lab 08/16/24 01:20 Completed CMP [Comprehensive Metabolic Panel] Stat Lab 08/16/24 01:20 Completed HIV Combo Stat Lab 08/16/24 01:00 Completed Hepatitis C Ab Qual. W/ RFX Stat Lab 08/16/24 01:00 Completed Rapid PCR Covid and Flu A/B Stat Lab 08/16/24 03:35 Completed Trop I [Troponin I] Stat Lab 08/16/24 01:20 Completed Troponin I Q3H Lab 08/16/24 04:30 Ordered Troponin I Q3H Lab 08/16/24 07:30 Ordered Medical Decision Narrative: In summary, this 28-year-old male with comorbidities described in the HPI presents to the emergency department today with syncope. As patient rolled into the room, he was unresponsive but immediately ammonia salts were waived under his nose and he became keenly alert, GCS 15 he is hemodynamically stable, afebrile, no localizing neurologic deficits. He reports that the room feels like it is spinning, but he has no nystagmus, normal [id number] and [id number], no deficits appreciated on exam, symptoms are not worsened by him sitting up or looking around the room. He has no traumatic findings on exam, cardiopulmonary exam benign. Differential diagnosis includes but is not limited to orthostatic hypotension, vasovagal episode, I considered seizure but there was no seizure-like activity and patient was not postictal, ammonia salts also would not have modified his mental status if he had had seizure, considered acute intracranial abnormality such as bleed, dissection, stroke, but have extremely low suspicion for these since he does not have localizing deficits, also considered vertigo, electrolyte abnormality, ACS, arrhythmia, considered PE but patient is PERC negative. Based on these concerns, I ordered serum labs, CT imaging, cardiac workup, chest x-ray. ECG personally interpreted demonstrates normal sinus rhythm, rate 82, normal axis, normal OR and QTc, no evidence of arrhythmia genic abnormality such as WPW, Brugada, HCM, or prolonged QT. Patient received IV fluid bolus initially for treatment. Labs personally reviewed demonstrate no leukocytosis, no anemia, platelets normal, CMP with trace hypokalemia, nonactionable. Troponin undetectably low reassuring since patient has benign ECG and no chest pain. XR personally interpreted demonstrates no pneumothorax, no widened mediastinum, no lobar infiltrate, no acute intrathoracic abnormality, see radiology read for final interpretation. CT imaging personally interpreted demonstrate no skull fracture, intracranial bleed, midline shift, no obvious large vessel abnormality such as dissection or occlusion. See radiology read for final rotation. I received a phone call from the reading radiologist who stated there is no large vessel occlusion, no other abnormality appreciated on the CTs. Patient was frequently reassessed by me. He stated he was feeling somewhat improved, but was still having nausea. Vitals continued to be stable. He was also complaining of mild headache. He received Toradol, acetaminophen, Zofran. On further reassessment he states he still has mild nausea but is also feeling extremely anxious. He received hydroxyzine. I also swabbed him for COVID/flu. Results of the swab were reviewed and are positive for influenza A. I discussed Tamiflu with the patient, he declined at this time which I believe is reasonable since he does not have risk factors For severe symptoms. His symptoms are completely resolved and he feels at baseline, tolerating oral intake, resting comfortably. He is appropriate for discharge at this time. I prescribed ondansetron for outpatient management. He was given explicit instructions on wearing a mask and washing his hands to avoid the spread especially to his new infant. Patient was given instructions on symptomatic management, follow up instructions, and return precautions for the emergency department. Patient indicated understanding and was discharged in stable condition. Critical Care Critical Care Time Critical Care Time: No
[2024-08-16 01:27] LABS: Basophils % 0.8 % (0.1-2.0); Eosinophils # 0.2 K/mm3 (0.0-0.4); Hematocrit 41.5 % (42.0-52.0); Hemoglobin 14.5 g/dL (14.1-18.0); Lymphocytes # 1.8 K/mm3 (0.7-4.5); Lymphocytes % 34.9 % (10-50); Mean Corpuscular HGB Conc 34.9 g/dL (31.8-35.4); Mean Corpuscular Hemoglobin 28.8 pg (27.0-31.2); Mean Corpuscular Volume 82.5 fl (80-94); Mean Platelet Volume 10.7 fl (7.4-10.4); Monocytes # 0.7 K/mm3 (0.1-1.0); Monocytes % 13.7 % (1.7-9.3); Neutrophils # 2.4 K/mm3 (1.8-7.8); Neutrophils % 46.4 % (37.0-80.0); Platelet Count 191 K/mm3 (142-424); Red Blood Count 5.03 M/mm3 (4.60-6.20); Red Cell Distribution Width 12.6 % (11.5-17.5); White Blood Count 5.2 K/mm3 (4.8-10.8)
[2024-08-16 01:33] LABS: Alanine Aminotransferase 36 U/L (12-78); Albumin Level 4.6 g/dl (3.5-5.0); Albumin/Globulin Ratio 1.8 (1.1-1.8); Alkaline Phosphatase 64 U/L (38-126); Anion Gap 17.4 mEq/L (5-15); Aspartate Amino Transferase 29 U/L (17-59); Bilirubin,Total 0.5 mg/dl (0.2-1.3); Blood Urea Nitrogen 14 mg/dl (9-20); Calcium 9.3 mg/dl (8.4-10.2); Carbon Dioxide 26 mmol/L (22.0-30.0); Chloride 98 mmol/L (98-107); Creatinine Clearance Estimated 177 mL/min (50-200); Estimated Glomerular Filt Rate 88 ml/min (>60); GFR (African American) 106 ML/MIN (>60); Globulin 2.6 g/dL (1.3-3.2); Glucose 129 mg/dl (74-100); Potassium 3.4 mmoL/L (3.5-5.1); Sodium 138 mmol/L (136-145); Total Protein,Serum 7.2 g/dl (6.3-8.2)
[2024-08-16] MEDS: LACTATED RINGERS 1000ML 1,000 ML 999 ML IV (01:35)
[2024-08-16 01:45] LABS: Troponin I < 0.01 ng/ml (0.00-0.034)
[2024-08-16] MEDS: 0.9 % SODIUM CHLORIDE 50 ML VIAL IV (01:52)
[2024-08-16] MEDS: SODIUM CHLORIDE 0.9% 10ML SYR (RAD ONLY) 10 ML IV (01:52)
[2024-08-16] MEDS: IOPAMIDOL-370 (76%);100ML BOTTLE 70 ML IV (01:52)
[2024-08-16] MEDS: ONDANSETRON 4MG/2ML VIAL 4 MG IV (02:06)
[2024-08-16] MEDS: ACETAMINOPHEN 500MG TAB 1000 MG PO (02:06)
[2024-08-16] MEDS: KETOROLAC 30MG/ML VIAL 30 MG IV (02:06)
[2024-08-16 02:14] VITALS: BP 157/91; PULSE 83; RESP 16; O2SAT 98
[2024-08-16 02:55] LABS: HIV Combo NEGATIVE (Negative)
[2024-08-16 03:04] LABS: Hepatitis C Ab Qual. W/ RFX NEGATIVE (Negative)
--- NOTE | 2024-08-16 03:16 | PC.NURSE ---
House stated pt is doing well with no compliants.
[2024-08-16] MEDS: hydrOXYzine pamoate 25MG CAPSULE 50 MG PO (03:32)
[2024-08-16 03:33] VITALS: BP 150/91; PULSE 83; O2SAT 97
[2024-08-16 03:40] LABS: Coronavirus 19, PCR Not Detected (NotDetected); Influenza B, PCR Not Detected (NotDetected)
[2024-08-16 03:58] LABS: Influenza A, PCR Detected (NotDetected)
[2024-08-16 04:15] VITALS: BP 130/78; PULSE 73; RESP 16; TEMP 36.7; O2SAT 97
== END 2024-08-16 04:16 | disposition home or self-care (01) ==
PROVIDERS: Emergency Provider Emergency Medicine; PCP Physician Assistant
DX: J10.1 Influenza due to other identified influenza virus with other respiratory manifestations (principal); R55 Syncope and collapse; R42 Dizziness and giddiness; R11.0 Nausea; R51.9 Headache, unspecified
CPT/HCPCS: 70450; 70496; 70498; 71045; 80053; 84484; 85025; 86803; 87389; 87636; 93005; 96361; 96374; 96375; 99285; J1885; J2405; J7120; Q9967